=== PATIENT | male | born 1985 | race African-American/Black ===

== ENCOUNTER 2017-12-28 15:34 | Emergency (ER) | payer OTHER ==
[~2017-12-28] VITALS: Ht 177.8 cm; Wt 102.1 kg
[2017-12-28 15:57] VITALS: BP 138/78
[2017-12-28 16:36] LABS: INFLUENZA A PATIENT POSITIVE (NEGATIVE); INFLUENZA B PATIENT NEGATIVE (NEGATIVE)
[2017-12-28] MEDS ORDERED: HYDR115S2 PO (17:08)
[2017-12-28] MEDS ORDERED: PROM25TA10 PO (17:08)
[2017-12-28] MEDS ORDERED: OSEL75CA PO (17:10)
--- NOTE | 2017-12-28 17:13 | PHYS DOC ---
Past History Past Medical History: No Pertinent History Past Surgical History: Other Alcohol Use: Rarely Drug Use: None Adult General Chief Complaint Chief Complaint: FLU SYMPTOM HPI HPI 32-year-old male patient without history of smoking or medical problems complaining of nasal congestion and cough and shortness of breath with mild nausea for the last 2 days that gradually getting worse. Patient states he had temperature of 101 and had sick contact at work. Review of Systems Review of Systems Constitutional: Reports Fever and chills and generalized weakness Eyes: Denies change in visual acuity, redness, or eye pain [] HENT: Nasal congestion[] Respiratory: Reports Cough and shortness of breath this] Cardiovascular: No additional information not addressed in HPI [] GI: Denies abdominal pain, vomiting, bloody stools or diarrhea , reports nausea [] : Denies dysuria or hematuria [] Musculoskeletal: Denies back pain or joint pain [] Integument: Denies rash or skin lesions [] Neurologic: Denies headache, focal weakness or sensory changes [] Endocrine: Denies polyuria or polydipsia [] All other systems were reviewed and found to be within normal limits, except as documented in this note. Physical Exam Physical Exam Constitutional: Well developed, well nourished, moderate distress, non-toxic appearance, febrile. [] HENT: Normocephalic, atraumatic, bilateral external ears normal, pharyngeal erythema and edema, oropharynx moist, no oral exudates, nose normal. [] Eyes: PERRLA, EOMI, conjunctiva normal, no discharge. [] Neck: Normal range of motion, no tenderness, supple, no stridor. [] Cardiovascular: Tachycardia, no murmur [] Lungs & Thorax: Bilateral breath sounds clear to auscultation [] Abdomen: Bowel sounds normal, soft, no tenderness, no masses, no pulsatile masses. [] Skin: Warm, dry, no erythema, no rash. [] Back: No tenderness, no CVA tenderness. [] Extremities: No tenderness, no cyanosis, no clubbing, ROM intact, no edema. [] Neurologic: Alert and oriented X 3, normal motor function, normal sensory function, no focal deficits noted. [] Psychologic: Affect normal, judgement normal, mood normal. [] Current Patient Data Vital Signs Vital Signs Date Time Temp Pulse Resp B/P (MAP) Pulse Ox O2 Delivery O2 Flow Rate FiO2 2/11/18 15:57 102.6 107 16 100 Room Air Lab Results Laboratory Tests Test 12/28/17 15:47 Influenza Type A (Rapid) Positive (NEGATIVE) Influenza Type B (Rapid) Negative (NEGATIVE) EKG EKG [] Radiology/Procedures Radiology/Procedures [] Course & Med Decision Making Course & Med Decision Making Pertinent Labs reviewed. (See chart for details) discharge: I've spoken with the patient and/or caregivers. I've explained the patient's condition, diagnosis and treatment plan based on information available to me at this time. I've answered the patient's and/or caregivers questions and addressed any concerns. The patient and/or caregivers have a good understanding the patient's diagnosis, condition and treatment plan as can be expected at this point. Vital signs have been stabilized. The patient's condition is stable for discharge from the emergency department. The patient will pursue further outpatient evaluation with her primary care provider or other designated consulting physician as outlined in the discharge instructions. Patient and/or caregivers are agreeable to this plan of care and follow-up instructions have been explained in detail. The patient and/or caregivers have received these instructions in written format and expressed understanding of these discharge instructions. The patient and her caregivers are aware that if any significant change in condition or worsening of symptoms should prompt him to immediately return to this of the closest emergency department. If an emergent department is not readily available I would encourage him to call 911. Doretha Disclaimer Doretha Disclaimer This electronic medical record was generated, in whole or in part, using a voice recognition dictation system. Departure Departure: Impression: Primary Impression: Influenza A Disposition: HOME, SELF-CARE (At 1730) Condition: IMPROVED Referrals: NON,STAFF (PCP) Patient Instructions: Fever, Adult, Influenza A (H1N1) Additional Instructions: Drink plenty of liquids Follow-up with your primary care physician in 3-5 days Return to ER if not getting better Scripts Oseltamivir Phosphate (TAMIFLU) 75 Mg Capsule 1 CAP PO BID, #10 CAP Prov: VERONICA HERNANDEZ MD 12/28/17 Promethazine Hcl (PROMETHAZINE HCL) 25 Mg Tablet 1 TAB PO PRN Q6HRS, #20 TAB Prov: VERONICA HERNANDEZ MD 12/28/17 Hydrocodone/Chlorphen P-Stirex (Tussionex Pennkinetic Susp) 115 Ml Theresa.er.12h 5 ML PO BID, #120 ML Prov: VERONICA HERNANDEZ MD 12/28/17 VERONICA HERNANDEZ MD Dec 28, 2017 17:13
[2017-12-28] MEDS ORDERED: IBUPROFEN 400 MG TABLET. PO ONE (17:30)
[2017-12-28] MEDS ORDERED: PROMETHAZINE 25 MG TABLET. PO ONE (17:30)
[2017-12-28] MEDS ORDERED: OSELTAMIVIR 75 MG CAPSULE PO ONE (17:30)
== END 2017-12-28 17:32 | disposition home or self-care (01) ==
LOC: ER 15:34
DX: J09.X2 Influenza due to identified novel influenza A virus with other respiratory manifestations (principal)
CPT/HCPCS: 87804; 99284

== ENCOUNTER 2018-11-11 18:14 | Emergency (ER) | payer OTHER ==
[~2018-11-11] VITALS: Ht 177.8 cm; Wt 107.0 kg
[~2018-11-11 18:14] MED LIST: HYDR115S2 PO; OSEL75CA PO; PROM25TA10 PO
--- NOTE | 2018-11-11 18:39 | PHYS DOC ---
Past History Past Medical History: No Pertinent History Past Surgical History: Other Alcohol Use: Rarely Drug Use: None Adult General Chief Complaint Chief Complaint: FLU SYMPTOM HPI HPI 23-year-old male presents with 2 day history of nausea, vomiting, diarrhea. The patient started to have vomiting and diarrhea yesterday. Today he has diffuse body aches. He has been able to keep down some fluids. He felt like he had a fever today but took some ibuprofen and it improved. He denies chills. He denies dysuria. He also has a mild sore throat, but no cough. No known sick contacts. Review of Systems Review of Systems Constitutional: Denies fever or chills [] Eyes: Denies change in visual acuity, redness, or eye pain [] HENT: Mild sore throat [] Respiratory: Denies cough or shortness of breath [] Cardiovascular: No additional information not addressed in HPI [] GI: Nausea, vomiting, diarrhea [] : Denies dysuria or hematuria [] Musculoskeletal: Denies back pain or joint pain [] Integument: Denies rash or skin lesions [] Neurologic: Denies headache, focal weakness or sensory changes [] Endocrine: Denies polyuria or polydipsia [] All other systems were reviewed and found to be within normal limits, except as documented in this note. Current Medications Current Medications Current Medications Medications (Trade) Dose Ordered Sig/Colby Start Time Stop Time Status Last Admin Dose Admin Loperamide HCl (Imodium) 2 mg 1X ONCE 11/11/18 18:45 11/11/18 18:46 Ondansetron HCl (Zofran) 4 mg 1X ONCE 11/11/18 18:45 11/11/18 18:46 Sodium Chloride 1,000 ml @ 1,000 mls/hr 1X ONCE 11/11/18 18:45 11/11/18 19:44 Allergies Allergies Allergies Coded Allergies Type Severity Reaction Last Updated Verified No Known Drug Allergies 12/28/17 No Physical Exam Physical Exam Constitutional: Well developed, well nourished, no acute distress, non-toxic appearance. [] HENT: Normocephalic, atraumatic, bilateral external ears normal, oropharynx moist, no oral exudates, nose normal. [] Eyes: PERRLA, EOMI, conjunctiva normal, no discharge. [] Neck: Normal range of motion, no tenderness, supple, no stridor. [] Cardiovascular:Heart rate regular rhythm, no murmur [] Lungs & Thorax: Bilateral breath sounds clear to auscultation [] Abdomen: Bowel sounds normal, soft, no tenderness, no masses, no pulsatile masses. [] Skin: Warm, dry, no erythema, no rash. [] Back: No tenderness, no CVA tenderness. [] Extremities: No tenderness, no cyanosis, no clubbing, ROM intact, no edema. [] Neurologic: Alert and oriented X 3, normal motor function, normal sensory function, no focal deficits noted. [] Psychologic: Affect normal, judgement normal, mood normal. [] EKG EKG [] Radiology/Procedures Radiology/Procedures [] Course & Med Decision Making Course & Med Decision Making Pertinent Labs and Imaging studies reviewed. (See chart for details) The patient is given 1 L normal saline, 2 mg loperamide, and 4 mg of Zofran ODT. He had no more vomiting diarrhea here in the ED. His labs are remarkable for potassium of 3.1. We'll advise him to take a multivitamin drink some Gatorade at home. I will discharge him with Zofran prescription. He is stable for discharge at this time. [] Dragon Disclaimer Dragon Disclaimer This electronic medical record was generated, in whole or in part, using a voice recognition dictation system. Departure Departure: Referrals: NON,STAFF (PCP) Scripts Ondansetron (ONDANSETRON ODT) 4 Mg Tab.rapdis 1 TAB PO PRN Q6-8HRS PRN for NAUSEA/VOMITING, #16 TAB Prov: FIDEL APODACA DO 11/11/18 FIDEL APODACA DO Nov 11, 2018 18:39
[2018-11-11] MEDS ORDERED: ONDANSETRON PF 4 MG/2 ML VIAL. IV ONE (18:45)
[2018-11-11] MEDS ORDERED: LOPERAMIDE 2 MG CAPSULE PO ONE (18:45)
[2018-11-11] MEDS ORDERED: IV NORMAL SALINE 1,000ML 1,000 ML IV ONE (18:45)
[2018-11-11 19:25] LABS: BASO % 0 % (0-3); EOS # 0.1 x10^3/uL (0.0-0.7); EOS % 2 % (0-3); HEMOGLOBIN 16.1 g/dL (13.0-17.5); LYMPH # 1.3 x10^3/uL (1.0-4.8); LYMPH % 29 % (24-48); MEAN CORPUSCULAR HEMOGLOBIN 30 pg (25-35); MEAN CORPUSCULAR HGB CONC 34 g/dL (31-37); MEAN CORPUSCULAR VOLUME 88 fL (79-100); MONO # 0.6 x10^3/uL (0.0-1.1); MONO % 14 % (0-9); NEUT # 2.4 x10^3uL (1.8-7.7); NEUT % 55 % (31-73); PLATELET COUNT 241 x10^3/uL (140-400); RED BLOOD COUNT 5.34 x10^6/uL (4.30-5.70); RED CELL DISTRIBUTION WIDTH 13.1 % (11.5-14.5); WHITE BLOOD COUNT 4.4 x10^3/uL (4.0-11.0)
[2018-11-11] MEDS ORDERED: ONDA4TAB12 PO (19:27)
[2018-11-11 20:12] LABS: ALBUMIN 3.3 g/dL (3.4-5.0); ALBUMIN/GLOBULIN RATIO 0.9 (1.0-1.7); CALCIUM 7.7 mg/dL (8.5-10.1); CREATININE 0.9 mg/dL (0.7-1.3); GFR 119.1; POTASSIUM 3.1 mmol/L (3.5-5.1); TOTAL BILIRUBIN 0.9 mg/dL (0.2-1.0); TOTAL PROTEIN 6.9 g/dL (6.4-8.2)
[2018-11-11 20:15] VITALS: BP 144/80
== END 2018-11-11 20:19 | disposition home or self-care (01) ==
LOC: ER 18:14
DX: R11.2 Nausea with vomiting, unspecified (principal); R19.7 Diarrhea, unspecified; M79.10 Myalgia, unspecified site; J02.9 Acute pharyngitis, unspecified
CPT/HCPCS: 36415; 80053; 85025; 96361; 96374; 99283; J2405; J7030

== ENCOUNTER 2019-03-15 22:16 | Emergency (ER) | payer OTHER ==
[~2019-03-15] VITALS: Ht 177.8 cm; Wt 104.3 kg
[~2019-03-15 22:16] MED LIST changes: +ONDA4TAB12 PO
--- NOTE | 2019-03-15 22:48 | ED.ADGEN ---
Past History Past Medical History: No Pertinent History Past Surgical History: Tonsillectomy, Other Alcohol Use: Rarely Drug Use: None Adult General Chief Complaint Chief Complaint ".. I donated blood.. and now my Lt. 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 Pt. has two areas of IV site ecchymosis for blood draw- on donating blood. Pt. Lt are has much large hematoma and ecchymosis. Skin in this area is not warm to the touch. Distal neurovascular intact. Some pain with flexion of Lt arm. Initial injury occurred on . Reportedly multiple IV attempts on Lt anti cubital space. Patient up-to-date with vaccinations. No recent travel. No history immunosuppression. No history coagulopathy with him or family members. Patient has normally very healthy. Works out daily. Patient is right-hand dominant. Pt. follow s at [place]. Review of Systems Review of Systems Constitutional: Denies fever or chills [] Eyes: Denies change in visual acuity, redness, or eye pain [] HENT: Denies nasal congestion or sore throat [] Respiratory: Denies cough or shortness of breath [] Cardiovascular: No additional information not addressed in HPI [] GI: Denies abdominal pain, nausea, vomiting, bloody stools or diarrhea [] : Denies dysuria or hematuria [] Musculoskeletal: Denies back pain or joint pain [] Integument: Denies rash or skin lesions []Complains of hematoma left antecubital space after blood donation Neurologic: Denies headache, focal weakness or sensory changes [] Endocrine: Denies polyuria or polydipsia [] All other systems were reviewed and found to be within normal limits, except as documented in this note. Family History Family History Non-contributory Current Medications Current Medications Current Medications Medications (Trade) Dose Ordered Sig/Colby Start Time Stop Time Status Last Admin Dose Admin Ibuprofen (Motrin) 600 mg 1X ONCE 03/15/19 23:30 03/15/19 23:31 DC 03/15/19 23:25 600 MG See Nursing for home meds Allergies Allergies Allergies Coded Allergies Type Severity Reaction Last Updated Verified No Known Drug Allergies 12/28/17 No Physical Exam Physical Exam Constitutional: Well developed, well nourished, no acute distress, non-toxic camille earance. [] HENT: Normocephalic, atraumatic, bilateral external ears normal, oropharynx moist, no oral exudates, nose normal. [] Eyes: PERRLA, EOMI, conjunctiva normal, no discharge. [] Neck: Normal range of motion, no tenderness, supple, no stridor. [] Cardiovascular:Heart rate regular rhythm, no murmur [] Lungs & Thorax: Bilateral breath sounds clear to auscultation [] Abdomen: Bowel sounds normal, soft, no tenderness, no masses, no pulsatile masses. [] Skin: Warm, dry, no erythema, no rash. [] Hematoma Lt. Anti cubital space- side of attempts of IV on Tues. Back: No tenderness, no CVA tenderness. [] Extremities: No tenderness, no cyanosis, no clubbing, ROM intact, no edema. [] Neurologic: Alert and oriented X 3, normal motor function, normal sensory function, no focal deficits noted. [] Psychologic: Affect anxiousl, judgement normal, mood normal. [] Current Patient Data Vital Signs Vital Signs Date Time Temp Pulse Resp B/P (MAP) Pulse Ox O2 Delivery O2 Flow Rate FiO2 03/15/19 23:30 69 16 154/103 (120) 95 Room Air 03/15/19 22:16 98.2 EKG EKG [] Radiology/Procedures Radiology/Procedures [] Course & Med Decision Making Course & Med Decision Making Pertinent Labs and Imaging studies reviewed. (See chart for details) Moist heat packs. Tylenol and Ibuprofen for discomfort. Follow up with primary. Return if any concerns. [] Final Impression Final Impression 1. Hematoma[]- at attempted IV site for blood donation. Dragon Disclaimer Dragon Disclaimer This electronic medical record was generated, in whole or in part, using a voice recognition dictation system. Discharge Summary Visit Information Final Diagnosis Problems Medical Problems: (1) Hematoma Status: Acute Brief Hospital Course Allergies Allergies Coded Allergies Type Severity Reaction Last Updated Verified No Known Drug Allergies 12/28/17 No Vital Signs Vital Signs Date Time Temp Pulse Resp B/P (MAP) Pulse Ox O2 Delivery O2 Flow Rate FiO2 03/15/19 23:30 69 16 154/103 (120) 95 Room Air 03/15/19 22:16 98.2 Brief Hospital Course Mr. Ortega is a 33 old male who presented with hematoma Lt anti cubital space after repeat attempts to establish IV for blood donation. Discharge Information Condition at Discharge: Stable Disposition/Orders: D/C to Home Dischare Medications Current Medications Ibuprofen (Motrin) 600 mg 1X ONCE PO Last administered on 03/15/19at 23:25; Admin Dose 600 MG; Start 03/15/19 at 23:30; Stop 03/15/19 at 23:31; Status DC Active Scripts Active Ibuprofen 800 Mg Tablet 800 Mg PO TIDPC Hydrocodone-Ibuprofen 7.5-200 (Hydrocodone/Ibuprofen) 1 Each Tablet 1 Tab PO PRN Q6HRS PRN Acetaminophen 500 Mg Tablet 1,000 Mg PO QIDPRN PRN Ondansetron Odt (Ondansetron) 4 Mg Tab.rapdis 1 Tab PO PRN Q6-8HRS PRN Tamiflu (Oseltamivir Phosphate) 75 Mg Capsule 1 Cap PO BID Promethazine Hcl 25 Mg Tablet 1 Tab PO PRN Q6HRS Tussionex Pennkinetic Susp (Hydrocodone/Chlorphen P-Stirex) 115 Ml Theresa.er.12h 5 Ml PO BID Dragon Disclaimer This chart was dictated in whole or in part using Voice Recognition software in a busy, high-work load, and often noisy Emergency Department environment. It ma y contain unintended and wholly unrecognized errors or omissions. ARLPH HUERTA MD Mar 15, 2019 22:48
[2019-03-15] MEDS ORDERED: HYDR-1179 PO (23:05)
[2019-03-15] MEDS ORDERED: IBUP800T19 PO (23:05)
[2019-03-15] MEDS ORDERED: ACET500T68 PO (23:05)
[2019-03-15 23:30] VITALS: BP 154/103
[2019-03-15] MEDS ORDERED: IBUPROFEN 600 MG TABLET. PO ONE (23:30)
== END 2019-03-15 23:30 | disposition home or self-care (01) ==
LOC: ER 22:16
DX: S40.022A Contusion of left upper arm, initial encounter (principal); W46.0XXA Contact with hypodermic needle, initial encounter; Y93.89 Activity, other specified; Y92.89 Other specified places as the place of occurrence of the external cause; Y99.8 Other external cause status
CPT/HCPCS: 99283